=== PATIENT | female | born 1975 | race Two or more races ===

== ENCOUNTER 2017-07-17 21:50 | Emergency (ER) | payer OTHER ==
--- NOTE | 2017-07-17 22:52 | ER Document Report ---
ED Animal Bite - General Chief Complaint: Dog Bite Stated Complaint: DOG BITE TO ANKLE Time Seen by Provider: 07/17/17 22:21 Mode of Arrival: Ambulatory Information source: Patient TRAVEL OUTSIDE OF THE [place] IN LAST 30 DAYS: No - HPI Patient complains to provider of: dog bite left ankle Location of injury: LLE - left ankle Severity of injury: Bitten Onset: Just prior to arrival Quality of pain: Throbbing Pain Level: 3 Severity: Moderate Context of attack: "Unprovoked" attack Summary of what happened: pt walking home, dog was unleashed and bit her leg. focuser took dog and left right after the bite and evacuated the scene Type of animal: Dog Appearance of animal: Appeared well Breed and color: believed to be pitbull Animal's immunizations: Unknown Animal captured or known: No Animal control form completed: Yes Notes: Patient is an otherwise healthy 41-year-old female with no significant past medical history. She denies any drug allergies. Patient states she is still able to move her foot and ankle around, but does have pain in doing so. She denies any drug allergies. Denies any headache, fever, head injury, neck pain, URI, sore throat, chest pain, palpitations, syncope, cough, shortness of breath , wheeze, dyspnea, abdominal pain, nausea/vomiting/diarrhea, dysuria, hematuria , loss of control of bowel or bladder, numbness/tingling, muscle paralysis/ weakness, or rash. - Related Data Allergies/Adverse Reactions: No Known Allergies Allergy (Verified 07/17/17 21:53) Past Medical History - Social History Smoking Status: Unknown if Ever Smoked Family History: Reviewed & Not Pertinent - Immunizations Hx Diphtheria, Pertussis, Tetanus Vaccination: Yes Review of Systems - Review of Systems Notes: REVIEW OF SYSTEMS: CONSTITUTIONAL : Denies fever, chills, or sweats. Denies recent illness. EENT: Denies eye, ear, throat, or mouth pain or symptoms. Denies nasal or sinus congestion or discharge. Denies throat, tongue, or mouth swelling or difficulty swallowing. CARDIOVASCULAR: Denies chest pain. Denies palpitations or racing or irregular heart beat. Denies ankle edema. RESPIRATORY: Denies cough, cold, or chest congestion. Denies shortness of breath, difficulty breathing, or wheezing. GASTROINTESTINAL: Denies abdominal pain or distention. Denies nausea, vomiting , or diarrhea. GENITOURINARY: Denies difficulty urinating, painful urination, burning, frequency, blood in urine, or discharge. MUSCULOSKELETAL: see hpi SKIN: see hpi NEUROLOGICAL: Denies dizziness or lightheadedness. Denies headache. Denies weakness or paralysis or loss of use of either side. Denies sensory loss, numbness, or tingling. Denies seizures. ALL OTHER SYSTEMS REVIEWED AND NEGATIVE. Dictation was performed using [employer] voice recognition software Physical Exam - Vital signs Vitals: Temp Pulse Resp BP Pulse Ox 98.5 F 97 18 128/85 H 100 07/17/17 21:53 07/17/17 21:53 07/17/17 21:53 07/17/17 21:53 07/17/17 21:53 Notes: PHYSICAL EXAMINATION: GENERAL: Well-appearing, well-nourished and in no acute distress. A&Ox4 LUNGS: Breath sounds clear to auscultation bilaterally and equal. No wheezes rales or rhonchi. HEART: Regular rate and rhythm without murmurs, rubs, gallops. Musculoskeletal: Lt ankle/foot: FROM to passive/active. Strength 5+/5. N/V intact distal. No other bony tenderness or obvious foreign body. + irregular 1.5cm laceration/puncture to the anteromedial ankle and another 1cm laceration/ puncture to the postero lateral ankle. Extremities: No cyanosis, clubbing, or edema b/l. Peripheral pulses 2+. Capillary refill less than 3 seconds. NEUROLOGICAL: Normal speech, limping gait. Normal sensory, motor exams PSYCH: Normal mood, normal affect. SKIN: see MSK exam. Warm, Dry, normal turgor, no rashes or lesions noted. Course - Re-evaluation Re-evalutation: 07/17/17 00:00 Patient is an afebrile, well-hydrated, 41-year-old female who presents to the ED with a dog bite to the left ankle with 2 open areas of involvement. Vitals are stable. PE is otherwise unremarkable For any neurovascular compromise, obvious tendon/ligament rupture, obvious fracture or dislocation, septic joint, or foreign body. X-ray was unremarkable for any acute pathology. I had a long and thorough discussion about the risks and benefits of the rabies vaccine and immunoglobulin as well as patient handout provided so that she could read it over period of time to make a better assessment of her decision. Based on the risks and benefits, patient does not wish to have the rabies vaccine or immunoglobulin at this time (official form of declination signed). Patient states that they will try to locate the dog tomorrow as I believe they know where it is to ask about immunization status and monitor. Patient understands that she can return if she changes her mind to receive the rabies vaccine and immunoglobulin. Wound was thoroughly irrigated and cleansed. A single 1/8 inch Steri-Strip was applied to the center of each wound while allowing for adequate drainage on both sides. I will send her home with a prescription for Augmentin to take as directed. Patient's tetanus is reported to be up-to-date. Wound dressing was placed and wound instructions reviewed. Recheck with your PCM in 3-5 days. Return to the ED with any worsening/concerning symptoms otherwise as reviewed discharge. Patient is in agreement. - Vital Signs Vital signs: Temp Pulse Resp BP Pulse Ox 98.5 F 97 18 128/85 H 100 07/17/17 21:53 07/17/17 21:53 07/17/17 21:53 07/17/17 21:53 07/17/17 21:53 Discharge - Discharge Clinical Impression: Dog bite of left ankle Qualifiers: Encounter type: initial encounter Qualified Code(s): S91.052A - Open bite, left ankle, initial encounter Condition: Stable Disposition: HOME, SELF-CARE Instructions: Animal Bites ([facility]), Augmentin ([facility]) Additional Instructions: Keep the skin clean Wash with soap and water Tylenol/ibuprofen if needed Triple antibiotic ointment daily x2-3 days Take medication as directed Locate dog and check immunization status and monitor for any signs of illness as reviewed Monitor for any worsening/developing symptoms You are always welcome to return for the rabies vaccine/immunoglobulin if you change your mind Recheck with your PCM in 3-5 days Return to the ED with any worsening symptoms and/or development of fever, headache, chest pain, palpitations, syncope, shortness of breath, trouble breathing, abdominal pain, n/v/d, abscess, purulent discharge, red streaks, worsening swelling, or other worsening symptoms that are concerning to you. Prescriptions: Amox Tr/Potassium Clavulanate [Augmentin 875-125 Tablet] 1 tab PO BID 10 Days # 20 tablet Forms: Elevated Blood Pressure Referrals: [facility] [Provider Group] - Follow up as needed [facility] [Provider Group] - Follow up as needed [facility] [Provider Group] - Follow up as needed
[2017-07-18] MEDS ORDERED: AMOXICILLIN TR/POT CLAVULANATE 500-125 MG TAB PO ONE (00:03)
--- NOTE | 2017-07-18 00:26 | RADIOLOGY REPORT (SQ) ---
EXAM DESCRIPTION: ANKLE LEFT COMPLETE CLINICAL HISTORY: 41 years, Female, dog bite COMPARISON: None. NUMBER OF VIEWS: 2 LIMITATIONS: None. FINDINGS: Moderate swelling and emphysema of subcutaneous soft tissues partially imaged of the anterolateral distal left lower leg. Bones and joints appear intact. No radiopaque foreign body. IMPRESSION: Soft tissue injury. 2011 [employer]- All Rights Reserved
[2017-07-18 00:37] VITALS: BP 125/74
== END 2017-07-18 00:35 | disposition home or self-care (01) ==
LOC: ER 21:50
DX: S91.052A Open bite, left ankle, initial encounter (principal); W54.0XXA Bitten by dog, initial encounter; Y93.01 Activity, walking, marching and hiking
CPT/HCPCS: 99283

== ENCOUNTER → 2020-08-30 | Outpatient (CLI) | payer OTHER ==
--- NOTE | 2020-08-30 14:08 | RADIOLOGY REPORT (SQ) ---
EXAM DESCRIPTION: MRI THORACIC SPINE WITHOUT IMAGES COMPLETED DATE/TIME: 08/30/2020 1:13 pm REASON FOR STUDY: NEUROPATHY G62.9 POLYNEUROPATHY, UNSPECIFIED COMPARISON: None. TECHNIQUE: Sagittal and Axial imaging includes T1, T2, STIR and gradient echo sequences. LIMITATIONS: None. FINDINGS: LOCALIZER: No worrisome findings. ALIGNMENT: Normal. VERTEBRAE: Intact. BONE MARROW: Normal. No marrow replacement or reactive changes. HARDWARE: None in the spine. CORD: Normal in size and signal intensity. SOFT TISSUES: No soft tissue masses. THORACIC DISCS T1-T12: No significant spinal stenosis or exit foraminal stenosis. LOWER CERVICAL: Incompletely imaged. No significant spinal stenosis or exit foraminal stenosis. UPPER LUMBAR: Incompletely imaged. No significant spinal stenosis or exit foraminal stenosis. OTHER: No other significant finding. IMPRESSION: 1. Generally unremarkable MRI of the thoracic spine. No large disc bulges or hernias. No spinal maite nosis detected. No fracture or bone lesion or spinal malalignment. TECHNICAL DOCUMENTATION: JOB ID: [id number] 2010 [employer]- All Rights Reserved Reading location - IP/workstation name: [email or web address]
== END ==
LOC: RAD 11:44
PROVIDERS: ATTEND Nurse Practitioner Family
DX: G62.9 Polyneuropathy, unspecified (principal)
CPT/HCPCS: 72146